=== PATIENT | female | born 2000 | race African-American/Black ===

== ENCOUNTER 2020-08-24 16:01 | Emergency (ER) | payer OTHER ==
[2020-08-24 17:01] LABS: RAPID GROUP A STREP NEGATIVE (NEGATIVE)
[2020-08-24] MEDS ORDERED: DEXAMETHASONE SOD PHOSPHATE 10MG/ML 1ML VIAL ONE (17:26)
[2020-08-24] MEDS ORDERED: CEFTRIAXONE SODIUM 1 GM ONE (17:26)
[2020-08-24] MEDS ORDERED: LIDOCAINE HCL-MPF 1% 2ML VIAL ONE (17:26)
[2020-08-24] MEDS ORDERED: SODIUM CHLORIDE 0.9% 1000ML 1,000 ML IV ONE (17:45)
== END 2020-08-24 18:37 | disposition home or self-care (01) ==
LOC: EDH 16:01
DX: J01.80 Other acute sinusitis (principal)
CPT/HCPCS: 87804 ×2; 87880; 96360; 96372 ×2; 99284; J0696; J1100; J3490; J7030; 96361